=== PATIENT | female | born 1930 | race Caucasian/White ===

== ENCOUNTER 2016-09-23 14:14 | Emergency (ER) | payer MEDICARE, OTHER ==
[~2016-09-23] VITALS: Ht 162.6 cm; Wt 65.8 kg
[2016-09-23 14:32] VITALS: BP_SYST 140
[2016-09-23] MEDS ORDERED: LIDOCAINE 1% 10 MG/ML, 20 ML MDV INJ ONE (15:45)
[2016-09-23] MEDS ORDERED: ACETAMINOPHEN 500 MG TABLET PO ONE (15:45)
[2016-09-23] MEDS ORDERED: DIPH-TET Vacc 0.5 ML VIAL I.M. ONE (16:00)
[2016-09-23 16:30] VITALS: BP_SYST 131
[2016-09-23] MEDS ORDERED: BACITRACIN 1 GM OINT TP ONE (16:30)
== END 2016-09-23 16:30 | disposition home or self-care (01) ==
LOC: SED 14:14
DX: S62.606A Fracture of unspecified phalanx of right little finger, initial encounter for closed fracture (principal); S61.214A Laceration without foreign body of right ring finger without damage to nail, initial encounter; E11.9 Type 2 diabetes mellitus without complications; I10 Essential (primary) hypertension; Z88.2 Allergy status to sulfonamides; W18.30XA Fall on same level, unspecified, initial encounter; Y93.89 Activity, other specified; Y99.8 Other external cause status; Y92.89 Other specified places as the place of occurrence of the external cause
CPT/HCPCS: 12001; 29125; 73130; 90471; 90714; 99284; J2001